=== PATIENT | male | born 1995 | race Caucasian/White ===

== ENCOUNTER 2023-01-27 21:33 | Emergency (ER) | payer BC, SELFPAY ==
[2023-01-27 21:35] VITALS: BP 141/90; PULSE 98; RESP 20; TEMP 36.4; O2SAT 97
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
[2023-01-27 21:45] VITALS: BP 133/90; PULSE 90; RESP 20; TEMP 37.2; O2SAT 99
[2023-01-27] MEDS: AMOXICILLIN 500 MG CAPSULE PO (21:49)
== END 2023-01-27 21:54 | disposition home or self-care (01) ==
PROVIDERS: Emergency Provider Emergency Medicine
DX: S01.511A Laceration without foreign body of lip, initial encounter (principal); Y04.0XXA Assault by unarmed brawl or fight, initial encounter
CPT/HCPCS: 99283; A9270

== ENCOUNTER 2023-03-09 11:24 | Emergency (ER) | payer OTHER, BC, SELFPAY ==
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
[2023-03-09 11:38] VITALS: BP 145/91; PULSE 107; RESP 20; TEMP 37.1; O2SAT 100
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
== END 2023-03-09 12:00 | disposition left against medical advice (07) ==
LOC: CHSED 12:03
PROVIDERS: Emergency Provider Emergency Medicine
DX: S06.6X1A Traumatic subarachnoid hemorrhage with loss of consciousness of 30 minutes or less, initial encounter (principal); S01.01XA Laceration without foreign body of scalp, initial encounter; S40.021A Contusion of right upper arm, initial encounter; V28.49XA Other motorcycle driver injured in noncollision transport accident in traffic accident, initial encounter; Z53.29 Procedure and treatment not carried out because of patient's decision for other reasons
CPT/HCPCS: 12001; 70450; 99284

== ENCOUNTER 2023-03-09 14:10 | Emergency (ER) | payer OTHER, BC, SELFPAY ==
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
[2023-03-09 14:15] VITALS: BP 149/99; PULSE 84; RESP 20; TEMP 36.9; O2SAT 98
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
[2023-03-09] MEDS: SODIUM CHLORIDE 0.9% IV 1,000 ML 999 ML IV CONT (14:26)
[2023-03-09] MEDS: HYDROcodone/acetaminophen (*CRX) 5-325 MG TABLET 2 TAB PO (14:27)
[2023-03-09] MEDS: ONDANSETRON HCL ODT 4 MG TABLET 8 MG PO (14:28)
[2023-03-09] MEDS: methocarbamoL 500 MG TABLET 1000 MG PO (14:28)
[2023-03-09 14:31] LABS: Basophils Absolute Auto 0.06 K/mm3 (0.00-0.10); Basophils Percent Auto 0.4 % (0.0-1.0); Hematocrit 47.6 % (40.0-54.0); Hemoglobin 16.9 g/dL (14.0-18.0); Immature Granulocyte Absolute 0.07 K/mm3 (0.00-0.00); Immature Granulocyte Percent A 0.4 % (0.0-0.0); Lymphocytes Absolute Auto 1.29 K/mm3 (1.10-4.50); Lymphocytes Percent Auto 7.6 % (18.0-42.0); Mean Corpuscular HGB Conc 35.5 g/dL (32.0-36.0); Mean Corpuscular Hemoglobin 32.9 pg (27.0-31.0); Mean Corpuscular Volume 92.6 fL (78.0-102.0); Mean Platelet Volume 10.2 fl (8.7-11.0); Monocytes Absolute Auto 1.22 K/mm3 (0.10-0.90); Monocytes Percent Auto 7.1 % (2.0-11.0); Neutrophils Absolute Auto 14.4 K/mm3 (1.7-7.2); Neutrophils Percent Auto 84.5 % (50.0-70.0); Platelet Count Result 219 K/mm3 (150-420); Red Blood Count 5.14 M/mm3 (4.70-6.10); Red Cell Distribution Width 12.4 % (11.6-14.4); White Blood Count 17.1 K/mm3 (4.8-10.8)
[2023-03-09 14:46] LABS: INR 0.9; Prothrombin Time 10.2 Seconds (9.50-12.10)
[2023-03-09 14:47] LABS: Alanine Aminotransferase 67 U/L (16-63); Albumin Level 4.1 g/dL (3.4-5.0); Alkaline Phosphatase 126 U/L (46-116); Anion Gap 11 mmol/L (8-16); Aspartate Amino Transferase 45 U/L (15-37); Bilirubin,Total 1.6 mg/dL (0.00-1.00); Blood Urea Nitrogen 10 mg/dL (7-18); Calcium 9.2 mg/dL (8.5-10.1); Carbon Dioxide 26 mmol/L (21-32); Chloride 103 mmol/L (98-108); Estimated Glomerular Filt Rate > 60; Glucose 117 mg/dL (70-99); Osmolality Calculated 290 mOsm/kg (285-295); Potassium 3.5 mmol/L (3.5-5.1); Sodium 140 mmol/L (136-145); Total Protein 7.7 g/dL (6.4-8.2)
[2023-03-09 14:51] VITALS: O2SAT 97
[2023-03-09 15:53] VITALS: BP 157/108; PULSE 88; RESP 20; O2SAT 98
[2023-03-09 16:15] VITALS: PULSE 90; RESP 20; O2SAT 97
== END 2023-03-09 16:18 | disposition short-term general hospital (02) ==
PROVIDERS: Emergency Provider Emergency Medicine
DX: S06.6X1D Traumatic subarachnoid hemorrhage with loss of consciousness of 30 minutes or less, subsequent encounter (principal); S00.03XD Contusion of scalp, subsequent encounter; X58.XXXD Exposure to other specified factors, subsequent encounter
CPT/HCPCS: 36415; 71045; 72125; 80053; 85025; 85610; 96360; 99291; A9270; J7030; L0150

== ENCOUNTER 2023-04-25 18:19 | Emergency (ER) | payer BC, SELFPAY ==
[2023-04-25 18:20] VITALS: BP 146/95; PULSE 87; RESP 20; TEMP 36.9; O2SAT 97
[2023-04-25] MEDS: LIDO 1%/EPINEPHRINE 1:100,000 20 ML VIAL (19:20)
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
== END 2023-04-25 20:10 | disposition home or self-care (01) ==
PROVIDERS: Emergency Provider Emergency Medicine
DX: D17.1 Benign lipomatous neoplasm of skin and subcutaneous tissue of trunk (principal); S21.111A Laceration without foreign body of right front wall of thorax without penetration into thoracic cavity, initial encounter; W22.01XA Walked into wall, initial encounter
CPT/HCPCS: 10080; 99283